=== PATIENT | male | born 1965 | race Caucasian/White ===

== ENCOUNTER 2021-04-30 00:07 | Emergency (ER) | payer BC, MEDICAID ==
[~2021-04-30] VITALS: Ht 180.3 cm; Wt 102.1 kg
[2021-04-30 01:16] VITALS: BP 137/96
== END 2021-04-30 01:55 | disposition home or self-care (01) ==
LOC: ER 00:07
DX: S61.451A Open bite of right hand, initial encounter (principal); I10 Essential (primary) hypertension; F32.9 Major depressive disorder, single episode, unspecified; F41.9 Anxiety disorder, unspecified; Z88.0 Allergy status to penicillin; W55.01XA Bitten by cat, initial encounter; Y93.89 Activity, other specified; Y92.89 Other specified places as the place of occurrence of the external cause; Y99.8 Other external cause status